=== PATIENT | female | born 1990 | race Caucasian/White ===

== ENCOUNTER 2017-11-05 12:25 | Emergency (ER) | payer OTHER ==
[~2017-11-05] VITALS: Ht 147.3 cm; Wt 56.7 kg
[~2017-11-05 12:25] MED LIST: HYDACE5 PO; NAPR550 PO
== END 2017-11-05 13:04 | disposition home or self-care (01) ==
LOC: ER 12:25
DX: R51 Headache (principal)
CPT/HCPCS: 99282; J1885

== ENCOUNTER → 2018-01-04 | Outpatient (CLI) | payer SELFPAY ==
[2018-01-05 14:22] LABS: Candida species (DNA Probe) Negative (NEGATIVE); G. vaginalis (DNA Probe) Positive (NEGATIVE); T. vaginalis (DNA Probe) Negative (NEGATIVE)
[2018-01-06 22:09] LABS: CHLAMYDIA TRACHOMATIS, NAA Negative (Negative); NEISSERIA GONORRHOEAE, NAA Negative (Negative)
== END ==
LOC: LAB SHORT 15:00 → LAB 15:00
PROVIDERS: Advanced Practice Midwife
DX: Z11.3 Encounter for screening for infections with a predominantly sexual mode of transmission (principal); N76.0 Acute vaginitis
CPT/HCPCS: 87480; 87491; 87510; 87591; 87660

== ENCOUNTER 2019-03-13 19:57 | Emergency (ER) | payer OTHER, SELFPAY ==
[~2019-03-13] VITALS: Ht 147.3 cm; Wt 54.4 kg
[2019-03-13 20:22] LABS: Source, Urine Clean Catch
[2019-03-13 20:25] LABS: Bilirubin, Urine Neg (Neg); Blood, Urine Neg (Neg); Glucose Qualitative, Urine Neg (Neg); Ketones, Urine Neg (Neg); Leukocyte Esterase, Urine Neg (Neg); Nitrite, Urine Neg (Neg); Protein, Urine Neg (Neg); Urobilinogen, Urine NORM (Normal)
[2019-03-13 20:35] LABS: Appearance, Urine Clear (Clear); Color, Urine Yellow (P-Yellow)
[2019-03-13 22:44] LABS: BASOPHILS ABSOLUTE AUTO 0.02 K/mm3 (0.00-0.23); BASOPHILS PERCENT AUTO 0 % (0-2); EOSINOPHILS ABSOLUTE AUTO 0.04 K/mm3 (0.00-0.68); EOSINOPHILS PERCENT AUTO 1 % (0-6); Hematocrit 37.1 % (33.0-51.0); Hemoglobin 11.4 g/dL (11.5-16.0); IMMATURE GRAN ABSOLUTE AUTO 0.02 K/mm3 (0.00-0.10); IMMATURE GRAN PERCENT AUTO 0 % (0-1); LYMPHOCYTES ABSOLUTE AUTO 2.42 K/mm3 (0.84-5.20); LYMPHOCYTES PERCENT AUTO 29 % (21-46); MONOCYTES ABSOLUTE AUTO 0.39 K/mm3 (0.16-1.47); MONOCYTES PERCENT AUTO 5 % (4-13); Mean Corpuscular HGB 24.5 pg (26.0-34.0); Mean Corpuscular HGB Conc 30.7 g/dL (31.5-36.5); Mean Corpuscular Volume 80 fL (80-100); Mean Platelet Volume 11.3 fL (9.1-12.4); NEUTROPHILS ABSOLUTE AUTO 5.45 K/mm3 (1.96-9.15); NEUTROPHILS PERCENT AUTO 65 % (41-73); Platelet Count 262 K/mm3 (150-400); RDW Standard Deviation 51.5 fL (35.1-46.3); Red Blood Cell Count 4.66 M/mm3 (3.80-5.20); White Blood Cell Count 8.34 K/mm3 (4.00-11.30)
[2019-03-13 23:04] LABS: Alanine Aminotransfer (ALT/SGP 25 U/L (12-78); Albumin, Blood 3.9 g/dL (3.4-5.0); Albumin/Globulin Ratio 0.9 (0.8-1.8); Alk Phos 63 U/L (50-136); Anion Gap 5 mmol/L (6-16); Aspartate Aminotrans (AST/SGOT 9 U/L (12-37); Bilirubin, Total 0.4 mg/dL (0.1-1.0); Blood Urea Nitrogen 12 mg/dL (8-24); Bun/Creatinine Ratio 18.3 (12.0-20.0); CO2, Blood 27 mmol/L (21-32); Calcium, Blood 9.1 mg/dL (8.5-10.1); Chloride, Blood 105 mmol/L (98-108); Creatinine, Blood 0.65 mg/dL (0.40-1.00); Globulin, Blood 4.2 g/dL (2.2-4.0); Glomerular Filtration Rate >60 (60-); Glucose, Blood 87 mg/dL (70-99); Potassium, Blood 3.5 mmol/L (3.5-5.5); Sodium, Blood 137 mmol/L (136-145); Total Protein, Blood 8.1 g/dL (6.4-8.2)
== END 2019-03-14 01:00 | disposition home or self-care (01) ==
LOC: ER 19:57
PROVIDERS: Emergency Medicine
DX: N83.202 Unspecified ovarian cyst, left side (principal)
CPT/HCPCS: 74177; 76830; 76856; 80053; 81003; 81025; 85025; 96374; 96375; 99284-25; A9270; J2405; J3010; Q9967

== ENCOUNTER → 2019-03-17 | Outpatient (CLI) | payer OTHER, SELFPAY ==
[2019-03-17 14:18] LABS: Candida species (DNA Probe) Negative (NEGATIVE); G. vaginalis (DNA Probe) Positive (NEGATIVE); T. vaginalis (DNA Probe) Negative (NEGATIVE)
[2019-03-19 07:07] LABS: CHLAMYDIA TRACHOMATIS, NAA Negative (Negative); NEISSERIA GONORRHOEAE, NAA Negative (Negative)
== END | disposition home or self-care (01) ==
LOC: LAB 10:07 → LAB SHORT 10:07
PROVIDERS: Obstetrics & Gynecology
DX: Z01.419 Encounter for gynecological examination (general) (routine) without abnormal findings (principal); Z11.3 Encounter for screening for infections with a predominantly sexual mode of transmission; N76.0 Acute vaginitis
CPT/HCPCS: 87480; 87491; 87510; 87591; 87660; G0123

== ENCOUNTER → 2021-05-27 | Outpatient (CLI) | payer OTHER ==
[2021-05-27 16:31] LABS: Source, Urine Clean Catch
[2021-05-27 19:21] LABS: Appearance, Urine Hazy (Clear); Blood, Urine 1+ (Neg); Color, Urine Amber (P-Yellow); Glucose Qualitative, Urine Neg (Neg); Ketones, Urine 1+ (Neg); Leukocyte Esterase, Urine 2+ (Neg); Nitrite, Urine Pos (Neg); Protein, Urine 2+ (Neg); Urobilinogen, Urine 2+ (Normal)
[2021-05-27 19:46] LABS: Bilirubin, Urine 1+ (Neg)
[2021-05-27 19:48] LABS: Bacteria Many /hpf; Squamous Epithelial Cells Few /hpf (Few)
[2021-05-27 19:49] LABS: Hyaline Casts 0-2 /lpf (0-2); Mucus Light (0-Heavy); Renal Epithelial Rare /hpf (0-Rare)
[2021-05-28 12:33] LABS: Candida species (DNA Probe) Negative (NEGATIVE); G. vaginalis (DNA Probe) Positive (NEGATIVE); T. vaginalis (DNA Probe) Negative (NEGATIVE)
== END | disposition home or self-care (01) ==
LOC: LAB SHORT 16:28
PROVIDERS: Obstetrics & Gynecology
DX: N76.0 Acute vaginitis (principal); R30.9 Painful micturition, unspecified
CPT/HCPCS: 81001; 87077; 87086; 87186; 87480; 87510; 87660

== ENCOUNTER → 2021-10-23 | Outpatient (CLI) | payer OTHER ==
[2021-10-24 11:27] LABS: Candida species (DNA Probe) Positive (NEGATIVE); G. vaginalis (DNA Probe) Negative (NEGATIVE); T. vaginalis (DNA Probe) Negative (NEGATIVE)
== END | disposition home or self-care (01) ==
LOC: LAB SHORT 09:20 → LAB 09:20
PROVIDERS: Obstetrics & Gynecology
DX: N76.0 Acute vaginitis (principal)
CPT/HCPCS: 87480; 87510; 87660

== ENCOUNTER 2022-06-23 13:04 | Emergency (ER) | payer OTHER ==
[~2022-06-23] VITALS: Ht 147.3 cm; Wt 59.0 kg
[2022-06-23 13:40] LABS: BASOPHILS ABSOLUTE AUTO 0.02 K/mm3 (0.00-0.23); BASOPHILS PERCENT AUTO 0 % (0-2); EOSINOPHILS ABSOLUTE AUTO 0.04 K/mm3 (0.00-0.68); EOSINOPHILS PERCENT AUTO 1 % (0-6); Hematocrit 35.9 % (33.0-51.0); Hemoglobin 11.5 g/dL (11.5-16.0); IMMATURE GRAN ABSOLUTE AUTO 0.01 K/mm3 (0.00-0.10); IMMATURE GRAN PERCENT AUTO 0 % (0-1); LYMPHOCYTES ABSOLUTE AUTO 1.47 K/mm3 (0.84-5.20); LYMPHOCYTES PERCENT AUTO 30 % (21-46); MONOCYTES ABSOLUTE AUTO 0.18 K/mm3 (0.16-1.47); MONOCYTES PERCENT AUTO 4 % (4-13); Mean Corpuscular Volume 84 fL (80-100); Mean Platelet Volume 11.3 fL (9.1-12.4); NEUTROPHILS ABSOLUTE AUTO 3.24 K/mm3 (1.96-9.15); NEUTROPHILS PERCENT AUTO 65 % (41-73); Platelet Count 214 K/mm3 (150-400); RDW Coefficient Variation 16.4 % (11.7-14.2); RDW Standard Deviation 50.8 fL (35.1-46.3); Red Blood Cell Count 4.26 M/mm3 (3.80-5.20); White Blood Cell Count 4.96 K/mm3 (4.00-11.30)
[2022-06-23 14:24] LABS: Albumin, Blood 3.7 g/dL (3.4-5.0); Bilirubin, Total 0.3 mg/dL (0.1-1.0); Bun/Creatinine Ratio 16.5 (12.0-20.0); Calcium, Blood 9.2 mg/dL (8.5-10.1); Creatinine, Blood 0.61 mg/dL (0.40-1.00); Globulin, Blood 3.8 g/dL (2.2-4.0); Potassium, Blood 3.7 mmol/L (3.5-5.5); Total Protein, Blood 7.5 g/dL (6.4-8.2)
[2022-06-23 16:13] LABS: Source, Urine Clean Catch
[2022-06-23 16:46] LABS: Appearance, Urine Clear (Clear); Bilirubin, Urine Neg (Neg); Blood, Urine Neg (Neg); Color, Urine Yellow (P-Yellow); Glucose Qualitative, Urine Neg (Neg); Ketones, Urine Neg (Neg); Leukocyte Esterase, Urine Neg (Neg); Nitrite, Urine Neg (Neg); Protein, Urine Neg (Neg); Specific Gravity, Urine 1.015 (1.003-1.022); Urobilinogen, Urine NORM (Normal)
== END 2022-06-23 18:16 | disposition home or self-care (01) ==
LOC: ER 13:04
PROVIDERS: Physician Assistant
DX: N20.0 Calculus of kidney (principal)
CPT/HCPCS: 36415; 74176; 80053; 81003; 83690; 84703; 85025; J1885; J2270; J2405; J7030

== ENCOUNTER → 2022-12-07 | Outpatient (CLI) | payer OTHER ==
[2022-12-09 14:11] LABS: CHLAMYDIA BY NAA Negative (Negative); GONOCOCCUS BY NAA Negative (Negative); TRICH VAG BY NAA Negative (Negative)
== END | disposition home or self-care (01) ==
LOC: LAB SHORT 11:51 → LAB 11:51
PROVIDERS: Family Medicine
DX: N89.8 Other specified noninflammatory disorders of vagina (principal)
CPT/HCPCS: 87491; 87591; 87661

== ENCOUNTER → 2024-06-05 | Outpatient (CLI) | payer OTHER | LOC: LAB 15:54 → LAB SHORT 15:54 | DX: O09.891 Supervision of other high risk pregnancies, first trimester (principal) | CPT/HCPCS: 87081; 87150 ==

== ENCOUNTER 2024-06-20 03:45 | Inpatient (IN) | payer OTHER ==
[~2024-06-20] VITALS: Ht 147.3 cm; Wt 77.7 kg
[2024-06-20] VITALS (49 sets, daily range): BP systolic 112–192; BP diastolic 55–106
[2024-06-20 05:15] LABS: Creatinine, Urine Random 91.5 mg/dL (27.00-270.00)
[2024-06-20 05:26] LABS: Protein, Urine Random 311.6 mg/dL (0.0-11.9); Protein/Creat Ratio, Ur Random 3.4
[2024-06-20 05:44] LABS: Albumin, Blood 1.8 g/dL (3.4-5.0); Albumin/Globulin Ratio 0.5 (0.8-1.8); Bilirubin, Total 0.2 mg/dL (0.1-1.0); Bun/Creatinine Ratio 17.8 (12.0-20.0); Calcium, Blood 8.7 mg/dL (8.5-10.1); Creatinine, Blood 0.62 mg/dL (0.40-1.00); Globulin, Blood 3.9 g/dL (2.2-4.0); Potassium, Blood 4.2 mmol/L (3.5-5.5); Total Protein, Blood 5.7 g/dL (6.4-8.2)
[2024-06-20 05:46] LABS: BASOPHILS ABSOLUTE AUTO 0.02 K/mm3 (0.00-0.23); BASOPHILS PERCENT AUTO 0 % (0-2); EOSINOPHILS ABSOLUTE AUTO 0.07 K/mm3 (0.00-0.68); EOSINOPHILS PERCENT AUTO 1 % (0-6); Hematocrit 34.3 % (33.0-51.0); Hemoglobin 10.8 g/dL (11.5-16.0); IMMATURE GRAN ABSOLUTE AUTO 0.01 K/mm3 (0.00-0.10); IMMATURE GRAN PERCENT AUTO 0 % (0-1); LYMPHOCYTES ABSOLUTE AUTO 2.28 K/mm3 (0.84-5.20); LYMPHOCYTES PERCENT AUTO 32 % (21-46); MONOCYTES ABSOLUTE AUTO 0.55 K/mm3 (0.16-1.47); MONOCYTES PERCENT AUTO 8 % (4-13); Mean Corpuscular HGB 25.8 pg (26.0-34.0); Mean Corpuscular HGB Conc 31.5 g/dL (31.5-36.5); Mean Corpuscular Volume 82 fL (80-100); NEUTROPHILS ABSOLUTE AUTO 4.25 K/mm3 (1.96-9.15); NEUTROPHILS PERCENT AUTO 59 % (41-73); NRBC ABSOLUTE 0.02 K/mm3 (0.00-0.02); NRBC Auto 0.3 /100 WBC (0.0-0.2); Platelet Count 169 K/mm3 (150-400); RDW Coefficient Variation 19.8 % (11.7-14.2); RDW Standard Deviation 57.4 fL (35.1-46.3); Red Blood Cell Count 4.19 M/mm3 (3.80-5.20); White Blood Cell Count 7.18 K/mm3 (4.00-11.30)
[2024-06-20 05:50] LABS: Mean Platelet Volume 12.2 fL (9.1-12.4)
[2024-06-20] MEDS ORDERED: Misoprostol 200 MCG Tab BC PRN (05:55)
[2024-06-20] MEDS ORDERED: Ondansetron HCl 2 MG / ML 2ML Vial IV PRN (05:55)
[2024-06-20] MEDS ORDERED: FentaNYL 2mcg/ml-Bup 0.1% Epd 250 ML EPI PRN (05:55)
[2024-06-20] MEDS ORDERED: Oxytocin 10 Unit / ML Vial IM PRN (05:55)
[2024-06-20] MEDS ORDERED: Lactated Ringer's 1,000 ML IV PRN (05:55)
[2024-06-20] MEDS ORDERED: Carboprost Tromethamine 250 MCG/ML 1ML Amp IM PRN ×2 (05:55→12:50)
[2024-06-20] MEDS ORDERED: Lactated Ringer's 1,000 ML IV SCH ×3 (05:55→13:00)
[2024-06-20] MEDS ORDERED: Methylergonovine Maleate 0.2MG / ML 1ML Amp IM PRN (05:55)
[2024-06-20] MEDS ORDERED: Acetaminophen 500 MG Tab PO PRN (05:55)
[2024-06-20] MEDS ORDERED: ePHEDrine Sulfate 50 MG/ML 1ML Injection XX PRN (05:55)
[2024-06-20] MEDS ORDERED: OXYTOCIN/RINGER'S LACTATE 500 ML IV PRN (05:55)
[2024-06-20] MEDS ORDERED: Tranexamic Acid 100 ML IV SCH (05:55)
[2024-06-20] MEDS ORDERED: Labetalol HCL 5 MG/ML 4ML Injection (Single Dose) IV PRN ×3 (05:55→06:05)
[2024-06-20] MEDS ORDERED: Misoprostol 200 MCG Tab PR PRN (05:55)
[2024-06-20] MEDS ORDERED: Calcium Carbonate 500 MG Tab Chew PO PRN (06:00)
[2024-06-20] MEDS ORDERED: FentaNYL Citrate 50 MCG/ML 2 ML Injection IV PRN (06:05)
[2024-06-20 07:32] LABS: International Normalized Ratio 0.91; Prothrombin Time Results 9.8 Sec (9.7-11.5)
[2024-06-20 07:33] LABS: Creatinine, Blood 0.65 mg/dL (0.40-1.00)
[2024-06-20] MEDS ORDERED: Insulin Regular 100 UNIT/ML 10ML Vial SC SCH (08:00)
[2024-06-20] MEDS ORDERED: [UNRECOGNIZED DRUG - OTHER] PO (08:28)
[2024-06-20] MEDS ORDERED: PRENATAL TABLE1 EAC2 PO (08:29)
[2024-06-20] MEDS ORDERED: INSULANI ×3 (08:29→08:30)
[2024-06-20] MEDS ORDERED: Labetalol HCL 100 MG TAB PO SCH ×2 (09:00→19:00)
[2024-06-20] MEDS ORDERED: FentaNYL Citrate 50 MCG/ML 2 ML Injection ONE ×2 (09:32→11:32)
[2024-06-20] MEDS ORDERED: Lidocaine 2%-Epineph 1:200000 20 ML SDV ONE (11:32)
--- NOTE | 2024-06-20 11:34 | NUR ---
[facility] SHUT OFF FOR PATIENT PASSED OUT THEN DR WEST HERE AT 1137 TO GIVE MORE MEDS FROM DR WEST THROUGH [facility] FOR VAGINAL REPAIR
--- NOTE | 2024-06-20 11:41 | NUR ---
SEE GE FOR EPISODE AFTER DELIVERY WHERE PATIENT PASSED OUT FOR 7 MINUTES
[2024-06-20] MEDS ORDERED: propofoL 20 ML IV ONE (11:53)
--- NOTE | 2024-06-20 11:53 | NUR ---
DR WEST AT BEDSIDE
--- NOTE | 2024-06-20 11:57 | NUR ---
DR WEST AT BEDSIDE MEDICATION GIVEN FOR PAIN O2 APPLIED PER MASK BY DR WEST WITH MEDICATION BIOX DOWN TO 93% PATIENT SLEEPING WITH MEDICATION
[2024-06-20] MEDS ORDERED: Witch Hazel/Glycerin PADS TOP PRN (12:50)
[2024-06-20] MEDS ORDERED: FLU VACC TS2024-25(6MOS UP)/PF 45 MCG/0.5 ML SYRINGE IM SCH (12:50)
[2024-06-20] MEDS ORDERED: Ibuprofen 400 MG Tab PO PRN (12:50)
[2024-06-20] MEDS ORDERED: Acetaminophen 325 MG TABLET PO PRN (12:55)
[2024-06-20] MEDS ORDERED: Benzocaine Topical Anesthetic Spray 60GM TOP PRN (12:55)
[2024-06-20] MEDS ORDERED: Lanolin Cream TOP PRN (12:55)
[2024-06-20] MEDS ORDERED: Rho(D) Immune Globulin 300 MCG / SYR IM ONE (12:55)
[2024-06-20] MEDS ORDERED: Polyethylene Glycol 3350 17 gm PO PRN (12:55)
[2024-06-20] MEDS ORDERED: Oxytocin 10 Unit / ML Vial IM ONE (13:00)
--- NOTE | 2024-06-20 14:29 | NUR ---
b/p elevated patient shaking arm, lungs clear, denies nausea, headache or visual disturbances, DTR WNL, biox remains 97%, taken off for now, patient sitting up eating and denies pain, bleeding WNL, Dr Carrion still at hospital aware of b/p
[2024-06-20] MEDS ORDERED: Ketorolac Tromethamine 30mg Vial IV SCH ×2 (15:30→18:00)
--- NOTE | 2024-06-20 15:41 | NUR ---
UP SHOWERED VOIDED, LINEN CHANGED
--- NOTE | 2024-06-20 16:33 | NUR ---
SEE NOTE IN GE FOR BLOOD PRESSURE AND CONTINUOUS NOTES, LAST ELEVATED B/P PATIENT WAS SHAKING ARM, RETAKE ON BLOOD PRESSURE 141/82, DENIES PAIN, NO HEADACHE VISUAL DISTURBANCES OR EPIGASTRIC PAIN,
[2024-06-21 04:19] VITALS: BP 116/63
[2024-06-21 06:16] LABS: BASOPHILS ABSOLUTE AUTO 0.02 K/mm3 (0.00-0.23); BASOPHILS PERCENT AUTO 0 % (0-2); EOSINOPHILS ABSOLUTE AUTO 0.05 K/mm3 (0.00-0.68); EOSINOPHILS PERCENT AUTO 1 % (0-6); Hematocrit 27.8 % (33.0-51.0); Hemoglobin 8.8 g/dL (11.5-16.0); IMMATURE GRAN ABSOLUTE AUTO 0.02 K/mm3 (0.00-0.10); IMMATURE GRAN PERCENT AUTO 0 % (0-1); LYMPHOCYTES ABSOLUTE AUTO 2.62 K/mm3 (0.84-5.20); LYMPHOCYTES PERCENT AUTO 30 % (21-46); MONOCYTES ABSOLUTE AUTO 0.43 K/mm3 (0.16-1.47); MONOCYTES PERCENT AUTO 5 % (4-13); Mean Corpuscular HGB 25.7 pg (26.0-34.0); Mean Corpuscular HGB Conc 31.7 g/dL (31.5-36.5); Mean Corpuscular Volume 81 fL (80-100); Mean Platelet Volume 11.6 fL (9.1-12.4); NEUTROPHILS ABSOLUTE AUTO 5.56 K/mm3 (1.96-9.15); NEUTROPHILS PERCENT AUTO 64 % (41-73); Platelet Count 159 K/mm3 (150-400); RDW Coefficient Variation 19.9 % (11.7-14.2); Red Blood Cell Count 3.42 M/mm3 (3.80-5.20)
[2024-06-21 08:04] VITALS: BP 125/70
[2024-06-21] MEDS ORDERED: Ferrous Sulfate 325 MG Tab PO SCH (09:00)
[2024-06-21] MEDS ORDERED: Prenatal Vit/FE Fumarate/FA 1 Tab PO SCH (09:00)
[2024-06-21 11:31] VITALS: BP 118/68
[2024-06-21 15:01] VITALS: BP 128/67
[2024-06-21] MEDS ORDERED: Sod Ferric Gluc Complx/Sucrose 125 MG in NS 100 ML IV ONE (15:30)
[2024-06-21 20:30] VITALS: BP 169/93
[2024-06-21 20:51] VITALS: BP 121/71
--- NOTE | 2024-06-21 21:26 | NUR ---
2029- 169/93 BLOOD PRESSURE. PT'S BLOOD PRESSURE CUFF WAS NOT ON CORRECTLY AND PT HAD FEET CROSSED (MALPOSITIONED). RN GAVE SCHEDULED LABETALOL. 2050- BLOOD PRESSURE WAS 121/71.
[2024-06-22 00:07] VITALS: BP 126/72
[2024-06-22 03:41] VITALS: BP 135/79
[2024-06-22 09:05] VITALS: BP 134/83
[2024-06-22 09:18] VITALS: BP 140/78
[2024-06-22] MEDS ORDERED: IBUP200 PO (10:46)
[2024-06-22] MEDS ORDERED: DOCU100 PO (10:47)
[2024-06-22] MEDS ORDERED: ACET500 PO (10:47)
[2024-06-22] MEDS ORDERED: LABE200 PO (10:48)
[2024-06-22] MEDS ORDERED: IRON FOLATE PL1 EACH PO (10:50)
[2024-06-22 12:20] VITALS: BP 140/78
[2024-06-22 12:32] VITALS: BP 140/78
--- NOTE | 2024-06-22 13:01 | NUR ---
REVIEWED DISCHARGE PACKET, MOM STATES SHE UNDERSTANDS INSTRUCTIONS AND FOLLOW UP APPOINTMENTS. PT READY FOR DISCHARGE ONCE FAMILY ARRIVES WITH PATRICIA CAPELLAN
--- NOTE | 2024-06-22 13:50 | NUR ---
DISCAHRGE TO HOME WITH NB, ESCORTED MOM CARRYING NB OUT TO CAR, WILL RETURN TOMORROW FOR F/U APPOINTMENT
== END 2024-06-22 13:50 | disposition home or self-care (01) | DRG 807 ==
LOC: OBS 03:45 → BC 03:46 → OBS 05:53 → BC 05:55
PROVIDERS: Obstetrics & Gynecology; ADMIT Family Medicine
PROC: 10E0XZZ Delivery of Products of Conception, External Approach (ICD-10-PCS; principal; 2024-06-20)
PROC: 0KQM0ZZ Repair Perineum Muscle, Open Approach (ICD-10-PCS; 2024-06-20)
PROC: 3E0R3BZ Introduction of Anesthetic Agent into Spinal Canal, Percutaneous Approach (ICD-10-PCS; 2024-06-20)
PROC: 00HU33Z Insertion of Infusion Device into Spinal Canal, Percutaneous Approach (ICD-10-PCS; 2024-06-20)
PROC: 0UQMXZZ Repair Vulva, External Approach (ICD-10-PCS; 2024-06-20)
DX: O24.420 Gestational diabetes mellitus in childbirth, diet controlled (principal); Z37.0 Single live birth; Z3A.37 37 weeks gestation of pregnancy; O99.02 Anemia complicating childbirth; D64.9 Anemia, unspecified; O69.81X0 Labor and delivery complicated by cord around neck, without compression, not applicable or unspecified; O99.892 Other specified diseases and conditions complicating childbirth; R00.0 Tachycardia, unspecified; O70.1 Second degree perineal laceration during delivery; O14.95 Unspecified pre-eclampsia, complicating the puerperium
CPT/HCPCS: 36415; 51701; 51702; 59025; 80053; 81003; 82565; 82570; 82947; 83615; 84156; 85025; 85384; 85610; 85730; 86850; 86900; 86901; 93005; 93010; 99214; A9270; J1885; J2590; J2704; J3010; J7120

== ENCOUNTER → 2025-06-08 | Outpatient (CLI) | payer OTHER ==
[~2025-06-08] MED LIST changes: +ACET500 PO; +DOCU100 PO; +IBUP200 PO; +INSULANI; +IRON FOLATE PL1 EACH PO; +LABE200 PO; +PRENATAL TABLE1 EAC2 PO; +[UNRECOGNIZED DRUG - OTHER] PO
[2025-06-08 16:31] LABS: Candida Group, PCR NOT DETECTED (NOT DETECT); Candida glabrata-krusei, PCR NOT DETECTED (NOT DETECT)
[2025-06-08 16:34] LABS: Bacterial Vaginosis PCR Positive (NEGATIVE)
[2025-06-08 17:05] LABS: Chlamydia Trachomatis Vaginal NOT DETECTED (NOT DETECT); Neisseria Gonorrhoea Vaginal NOT DETECTED (NOT DETECT)
== END | disposition home or self-care (01) ==
LOC: LAB 13:11 → LAB SHORT 13:11
PROVIDERS: Family Medicine
DX: N89.8 Other specified noninflammatory disorders of vagina (principal)
CPT/HCPCS: 81515; 87491; 87591